=== PATIENT | male | born 1995 | race African-American/Black ===

== ENCOUNTER 2021-11-09 09:48 | Inpatient (IN) | payer MEDICAID, OTHER ==
[~2021-11-09] VITALS: Ht 188 cm; Wt 225.7 kg
[2021-11-09 11:22] LABS: HEMATOCRIT. 45.3 % (42.0-52.0); HEMOGLOBIN. 14.3 g/dL (14.0-18.0); MEAN CORPUSCULAR HEMOGLOBIN 25.7 pg (28.0-32.0); MEAN PLATELET VOLUME 7.9 fl (7.4-10.4); PLATELET 373 x1000/uL (130-400); RED BLOOD CELL COUNT 5.59 mill/uL (4.7-6.1); RED CELL DISTRIBUTION WIDTH 16.5 % (11.6-14.6)
[2021-11-09 11:45] LABS: CHLORIDE 106 mEq/L (98-107)
[2021-11-09 12:26] LABS: PLATELET ESTIMATE NORMAL
[2021-11-09 14:27] LABS: CLARITY URINE CLEAR (CLEAR); COLOR URINE YELLOW (YELLOW); KETONES URINE NEGATIVE (NEGATIVE); LEUKOCYTE ESTERASE URINE NEGATIVE (NEGATIVE); NITRITE URINE NEGATIVE (NEGATIVE); OCCULT BLOOD URINE TRACE (NEGATIVE); PH URINE 5.5 (4.5-8.0); PROTEIN URINE 3+ (NEGATIVE); SPECIFIC GRAVITY URINE 1.015 (1.005-1.030)
[2021-11-09] MEDS ORDERED: ACETAMINOPHEN 325MG TABLET PO PRN ×3 (14:45→15:30)
[2021-11-09] MEDS ORDERED: ONDANSETRON HCL 4MG/2ML INJ IV PRN ×2 (14:45→15:30)
[2021-11-09] MEDS ORDERED: MAGNESIUM/ALUMINUM HYDROXIDE/SIMETHICONE 30ML UDC PO PRN (15:30)
[2021-11-09] MEDS ORDERED: LORAZEPAM 0.5MG TABLET PO PRN (15:30)
[2021-11-09] MEDS ORDERED: DOCUSATE SODIUM 100MG CAPSULE PO PRN (15:30)
[2021-11-09] MEDS ORDERED: HYDROCODONE/ACETAMINOPHEN 5/325MG TABLET PO PRN (15:30)
[2021-11-09] MEDS ORDERED: IPRATROPIUM/ALBUTEROL 0.5-3(2.5)MG/3ML NEB HHN PRN (15:30)
[2021-11-09] MEDS ORDERED: CLONIDINE 0.1MG TABLET PO PRN (15:30)
[2021-11-09] MEDS ORDERED: GUAIFENESIN 200MG/10ML SUGAR FREE UDC PO PRN (15:30)
[2021-11-09 15:43] VITALS: BP 130/97
[2021-11-09] MEDS ORDERED: METF-414 MT (15:59)
[2021-11-09 16:00] VITALS: BP 130/97
[2021-11-09] MEDS ORDERED: BENA1TAB21 MT (16:00)
[2021-11-09] MEDS: FUROSEMIDE 40MG/4ML VIAL IVP SCH (17:13)
[2021-11-09] MEDS: ENOXAPARIN 40MG/0.4ML SYR SUBCUT SCH (17:14)
[2021-11-09 18:00] VITALS: BP 130/97
[2021-11-09 20:00] VITALS: BP 171/88
[2021-11-09] MEDS ORDERED: NALOXONE HCL 0.4MG/ML VIAL IV PRN (20:00)
[2021-11-10] VITALS: BP 149/91
[2021-11-10 04:00] VITALS: BP 133/92
[2021-11-10] MEDS: ENOXAPARIN 40MG/0.4ML SYR SUBCUT SCH (06:15)
[2021-11-10 07:19] LABS: BASOPHILS % 1.1 % (0.0-2.0); EOSINOPHILS % 12.2 % (0.0-5.0); HEMATOCRIT. 47.4 % (42.0-52.0); HEMOGLOBIN. 15.3 g/dL (14.0-18.0); LYMPHOCYTES % 23.9 % (20.0-50.0); MEAN CORPUSCULAR HEMOGLOBIN 25.8 pg (28.0-32.0); MEAN CORPUSCULAR VOLUME 80.2 fL (80.0-94.0); MEAN PLATELET VOLUME 8.7 fl (7.4-10.4); MONOCYTES % 10.8 % (2.0-8.0); PLATELET 174 x1000/uL (130-400); RED BLOOD CELL COUNT 5.92 mill/uL (4.7-6.1); RED CELL DISTRIBUTION WIDTH 16.4 % (11.6-14.6)
[2021-11-10 07:36] LABS: CHLORIDE 101 mEq/L (98-107)
[2021-11-10 07:51] LABS: CREATINE KINASE 238 IU/L (39-308); HDL CHOLESTEROL 33 mg/dL (40-59); LDL CHOLESTEROL 121 mg/dL (5-100); T4 FREE 1.32 ng/dL (0.76-1.46)
[2021-11-10 08:00] VITALS: BP 127/88
[2021-11-10] MEDS: FUROSEMIDE 40MG/4ML VIAL IVP SCH (08:56)
[2021-11-10] MEDS ORDERED: ASPIRIN 81MG EC TABLET PO SCH (09:00)
[2021-11-10 12:17] VITALS: BP 134/87
[2021-11-10] MEDS ORDERED: FURO-151 MT (12:27)
[2021-11-10 13:12] LABS: *AMPHETAMINES SCREEN URINE NEGATIVE (NEGATIVE); *BARBITURATES SCREEN URINE NEGATIVE (NEGATIVE); *BENZODIAZEPINES SCREEN URINE NEGATIVE (NEGATIVE); *COCAINE SCREEN URINE NEGATIVE (NEGATIVE); CANNABINOID URINE SCREEN NEGATIVE (NEGATIVE); METHADONE URINE SCREEN NEGATIVE (NEGATIVE); OPIATES URINE SCREEN NEGATIVE (NEGATIVE); PHENCYCLIDINE URINE SCREEN NEGATIVE (NEGATIVE)
[2021-11-10 15:16] VITALS: BP 134/87
[2021-11-10] MEDS ORDERED: ATORVASTATIN CALCIUM 10MG TABLET PO SCH (21:00)
== END 2021-11-10 16:00 | disposition home or self-care (01) | DRG 194 ==
LOC: ER 09:48 → ENRESERV 14:18 → 7EST 14:51
PROVIDERS: ADMIT Family Medicine Adult Medicine; ATTEND Family Medicine Adult Medicine
DX: I11.0 Hypertensive heart disease with heart failure (principal); K76.0 Fatty (change of) liver, not elsewhere classified; Z68.44 Body mass index [BMI] 60.0-69.9, adult; I50.23 Acute on chronic systolic (congestive) heart failure; E66.01 Morbid (severe) obesity due to excess calories; Z20.822 Contact with and (suspected) exposure to COVID-19; E78.5 Hyperlipidemia, unspecified; E11.9 Type 2 diabetes mellitus without complications
CPT/HCPCS: 36415; 71045; 76700; 80053; 80061; 80305; 81003; 82550; 82962; 83036; 83880; 84439; 84443; 84484; 85025; 87426; 93005; 93306; 93970; 97166; 99285; J1650; J1940